=== PATIENT | female | born 1955 | race Caucasian/White ===

== ENCOUNTER → 2016-06-29 | Outpatient (CLI) | payer MEDICAID | END | disposition home or self-care (01) | LOC: CFH 13:06 | PROVIDERS: ATTEND Family Medicine | DX: N63 Unspecified lump in breast (principal) | CPT/HCPCS: 76642; G0204 ==

== ENCOUNTER 2016-07-29 14:25 | Emergency (ER) | payer MEDICAID ==
[~2016-07-29] VITALS: Ht 160 cm; Wt 68.7 kg
[2016-07-29 14:27] VITALS: BP 178/78
[2016-07-29] MEDS ORDERED: IBUPROFEN 200 MG TABLET PO ONE (15:00)
[2016-07-29] MEDS ORDERED: IBUPROFEN 200 MG TABLET ONE (15:01)
== END 2016-07-29 16:14 | disposition home or self-care (01) ==
LOC: ED 14:58
DX: M25.551 Pain in right hip (principal); M54.9 Dorsalgia, unspecified; G89.29 Other chronic pain; E78.00 Pure hypercholesterolemia, unspecified; E07.9 Disorder of thyroid, unspecified; I25.2 Old myocardial infarction; Z98.84 Bariatric surgery status; Z88.0 Allergy status to penicillin; Z90.710 Acquired absence of both cervix and uterus
CPT/HCPCS: 72110; 99284

== ENCOUNTER 2018-04-05 15:13 | Inpatient (IN) | payer OTHER ==
[~2018-04-05] VITALS: Ht 165.1 cm; Wt 84.5 kg
--- NOTE | 2018-04-05 15:32 | NUR ---
62 Y/O FEMALE BIB AMBULANCE WITH C/O POSSIBLE SZ. PER REPORT PT NEIGHBOR HEARD A THUNK. UPON ARRIVAL THE PT C/O DIZZINESS AND HEARING HER DOG FREAK OUT. PT WAS A&OX2. PER EMS, ALMOST ALL MEDICATION BOTTLES WERE OPEN AND ALL OVER THE TABLE AND FLOOR. PT IS A&OX1 AT THIS TIME. PT ONLY KNOWS NAME AT THIS TIME. PT PLACED ON CONT PULSE OX,NIBP, SENIOR LOAN PROCESSOR. NO ACUTE DISTRESS NOTED.
[2018-04-05] MEDS ORDERED: LEVOTHYROXINE (15:37)
[2018-04-05] MEDS ORDERED: METOPROLOL (15:37)
[2018-04-05] MEDS ORDERED: LORAZEPAM (15:37)
[2018-04-05] MEDS ORDERED: TOPIRAMATE (15:37)
[2018-04-05] MEDS ORDERED: LEXAPRO (15:37)
[2018-04-05] MEDS ORDERED: LOVASTATIN (15:37)
[2018-04-05] MEDS ORDERED: FUROSEMIDE (15:37)
[2018-04-05] MEDS ORDERED: PROVENTIL (15:37)
[2018-04-05] MEDS ORDERED: LANTUS (15:37)
[2018-04-05] MEDS ORDERED: GABAPENTIN (15:37)
[2018-04-05] MEDS ORDERED: RANITIDINE (15:37)
--- NOTE | 2018-04-05 15:59 | NUR ---
BED SILVESTRE REMOVED FROM PT. PT MISSED BEDPAN. ALL CLEAN LINENS PLACED UNDER PT. PT RESTING ON GURNEY. NO ACUTE DISTRESS NOTED. N O NEEDS REQUESTED AT THIS TIME.
[2018-04-05] MEDS ORDERED: ASPIRIN 81 MG TABLET CHEW PO ONE (16:30)
--- NOTE | 2018-04-05 16:37 | NUR ---
PT RESTING ONGURNEY. NO ACUTE DISTRESS NOTED. PT A&OX2 AT THIS TIME. NO NEEDS REQUESTED AT THIS TIME.
[2018-04-05 16:48] LABS: BASOPHILS # (AUTO) 0.06 x10^3/uL (0-0.1); BASOPHILS % (AUTO) 1 % (0-1); EOSINOPHILS # (AUTO) 0.07 x10^3/uL (0-0.4); EOSINOPHILS % (AUTO) 1 % (1-7); LYMPHOCYTES # (AUTO) 1.51 x10^3/uL (1-3.4); LYMPHOCYTES % (AUTO) 22 % (22-44); MD NO; MEAN CORPUSCULAR HEMOGLOBIN 29.1 pg (27.0-34.8); MEAN CORPUSCULAR HGB CONC 33.3 g/dL (32.4-35.8); MEAN CORPUSCULAR VOLUME 87.5 fL (80-100); MONOCYTES # (AUTO) 0.79 x10^3/uL (0.2-0.8); MONOCYTES % (AUTO) 12 % (2-9); NEUTROPHILS # (AUTO) 4.31 x10^3/uL (1.8-6.8); NEUTROPHILS % (AUTO) 64 % (42-75); PLATELET COUNT 280 x10^3/uL (130-400); RED BLOOD COUNT 5.15 x10^6/uL (3.82-5.3); RED CELL DISTRIBUTION WIDTH 13.9 % (9.6-15.2)
[2018-04-05 17:00] LABS: ALBUMIN 3.8 g/dL (3.4-5.0); ANION GAP 11 mmol/L (5-15); CALCIUM 9.6 mg/dL (8.5-10.1); CHLORIDE 105 mmol/L (98-107); CREATININE 1.26 mg/dL (0.55-1.02)
[2018-04-05 17:04] LABS: TROPONIN I < 0.015 ng/mL (0.000-0.045)
--- NOTE | 2018-04-05 18:04 | NUR ---
LATE ENTRY FOR 0 PT AGITATED AND DIAPHORETIC. PT FSBS WAS 82. EKG PERFORMED. EDMD BEDSIDE. PT GIVEN JUICE. PT NOW STAYING IN [facility]. PT WAS TRYING TO GET OUT OF [facility].
--- NOTE | 2018-04-05 18:05 | NUR ---
PT GIVEN PHONE TO CALL SISTER. PT ON JACEY AT THIS TIME. VSS.
--- NOTE | 2018-04-05 18:35 | NUR ---
PT MUCH MORE CALM. PT STATES " I FEEL MUCH BETTER NOW." VSS. NO ACUTE DISTRESS NOTED. NO NEEDS REQUESTED AT THIS TIME. -
[2018-04-05 18:46] LABS: FREE T4 (FREE THYROXINE) 1.62 ng/dL (0.76-1.46); THYROID STIMULATING HORMONE 0.024 mIU/L (0.358-3.740)
--- NOTE | 2018-04-05 19:08 | NUR ---
REPORT RECEIVED FROM FELIX BLANCO AND ASSUMING CARE OF PT
--- NOTE | 2018-04-05 19:10 | NUR ---
bedside report to FELIX Wheeler
[2018-04-05] MEDS ORDERED: POLYETHYLENE GLYCOL 17 GM PACKET PO PRN (19:30)
[2018-04-05] MEDS ORDERED: ACETAMINOPHEN 325 MG TABLET PO PRN (19:30)
[2018-04-05] MEDS ORDERED: LORazepam 2 MG/ML, 1ML IVPush PRN (19:30)
[2018-04-05] MEDS ORDERED: BISACODYL 10 MG SUPP PR PRN (19:30)
[2018-04-05] MEDS ORDERED: ONDANSETRON ODT 4 MG PO PRN (19:30)
--- NOTE | 2018-04-05 19:50 | NUR ---
PT ASSISTED BACK FROM BATRHOOM TO BED. REPORT OF PT CALLED TO FELIX ADKINS. ALL QUESTIONS ANSWERED.
[2018-04-05 19:54] LABS: HEMOGLOBIN A1C 7.7 % (4.2-6.3)
--- NOTE | 2018-04-05 20:01 | NUR ---
REPORT OF PT CALLED TO FELIX ADKINS. ALL QUESTIONS ANSWERED. PT SISTER CALLED AND ROOM ASSIGNMENT WAS GIVEN TO SISTER. PT INFORMED OF TRANSFER TO FLOOR.
[2018-04-05] MEDS ORDERED: LORazepam 2 MG/ML, 1ML IV ONE (20:30)
[2018-04-05] MEDS: SODIUM CHLORIDE 0.9% 1,000 ML IV SCH (22:17)
[2018-04-06 00:54] VITALS: BP 161/82
[2018-04-06] MEDS: ATORVASTATIN 40 MG TABLET PO SCH ×2 (01:52→19:34)
[2018-04-06 02:30] LABS: MICROSCOPIC AUTO
[2018-04-06 02:31] LABS: CULTURE INDICATED? YES
[2018-04-06 03:14] LABS: AMPHETAMINE SCREEN, URINE Negative (Negative); BARBITURATE SCREEN, URINE Negative (Negative); BENZODIAZEPINE SCREEN, URINE Negative (Negative); CANNABINOID SCREEN, URINE Negative (Negative); COCAINE SCREEN, URINE Negative (Negative); METHADONE SCREEN, URINE Negative (Negative); OPIATE SCREEN, URINE Negative (Negative)
[2018-04-06] MEDS: ASPIRIN 81 MG TABLET EC PO SCH (05:45)
[2018-04-06 06:04] LABS: CHLORIDE 106 mmol/L (98-107)
[2018-04-06 06:08] LABS: BASOPHILS # (AUTO) 0.06 x10^3/uL (0-0.1); BASOPHILS % (AUTO) 1 % (0-1); EOSINOPHILS # (AUTO) 0.01 x10^3/uL (0-0.4); EOSINOPHILS % (AUTO) 0 % (1-7); LYMPHOCYTES # (AUTO) 2.05 x10^3/uL (1-3.4); LYMPHOCYTES % (AUTO) 30 % (22-44); MD NO; MEAN CORPUSCULAR HEMOGLOBIN 29.5 pg (27.0-34.8); MEAN CORPUSCULAR HGB CONC 33.7 g/dL (32.4-35.8); MEAN CORPUSCULAR VOLUME 87.8 fL (80-100); MEAN PLATELET VOLUME 9.4 fL (7.4-10.4); MONOCYTES # (AUTO) 0.96 x10^3/uL (0.2-0.8); MONOCYTES % (AUTO) 14 % (2-9); NEUTROPHILS % (AUTO) 55 % (42-75); PLATELET COUNT 276 x10^3/uL (130-400); RED BLOOD COUNT 4.54 x10^6/uL (3.82-5.3); RED CELL DISTRIBUTION WIDTH 14.4 % (9.6-15.2)
[2018-04-06 06:15] LABS: ALANINE AMINOTRANSFERASE 32 U/L (12-78); ALBUMIN 3.1 g/dL (3.4-5.0); ALKALINE PHOSPHATASE 133 U/L (45-117); ANION GAP 10 mmol/L (5-15); BILIRUBIN,TOTAL 0.6 mg/dL (0.2-1.0); CALCIUM 7.9 mg/dL (8.5-10.1); CHOL/HDL RATIO 2.3; CHOLESTEROL, TOTAL 147 mg/dL (140-239); CREATININE 1.76 mg/dL (0.55-1.02); HDL CHOL % 44 % (28-40); HDL CHOLESTEROL (DIRECT) 65 mg/dL (40-60); LDL CHOLESTEROL,CALCULATED 61 mg/dL (54-169); LDL/HDL RATIO 0.9 (0.5-3.0); TRIGLYCERIDES 107 mg/dL (50-200); TROPONIN I 0.036 ng/mL (0.000-0.045); VLDL CHOLESTEROL 21 mg/dL (0-25)
[2018-04-06] MEDS: SODIUM CHLORIDE 0.9% 1,000 ML IV SCH ×2 (08:41→19:37)
[2018-04-06] MEDS: SENNA/DOCUSATE TABLET PO SCH (08:41)
[2018-04-06 09:57] VITALS: BP 128/71
[2018-04-06] MEDS ORDERED: LORazepam 2 MG/ML, 1ML IVPush ONE (10:30)
[2018-04-06] MEDS ORDERED: INSULIN LISPRO 100 UNITS/ML, PEN SQ-INSULIN SCH (11:00)
[2018-04-06 12:01] LABS: TROPONIN I < 0.015 ng/mL (0.000-0.045)
[2018-04-06] MEDS: CEFTRIAXONE PMX 1GM/50ML 50 ML IV SCH (12:35)
[2018-04-06 12:57] VITALS: BP 133/59
[2018-04-06] MEDS ORDERED: LORazepam 2 MG/ML, 1ML IVPush PRN (17:00)
[2018-04-06] MEDS: INSULIN LISPRO 100 UNITS/ML, PEN SQ-INSULIN SCH ×2 (17:48→19:37)
[2018-04-06 18:26] VITALS: BP 137/71
[2018-04-06] MEDS: INSULIN GLARGINE 100 UNITS/ML, PEN SQ-INSULIN SCH (21:54)
[2018-04-07] MEDS: ASPIRIN 81 MG TABLET EC PO SCH (05:43)
[2018-04-07] MEDS: LEVOTHYROXINE 100 MCG TABLET PO SCH (05:43)
[2018-04-07 06:22] LABS: ANION GAP 10 mmol/L (5-15); CALCIUM 8.2 mg/dL (8.5-10.1); CHLORIDE 110 mmol/L (98-107); CREATININE 1.09 mg/dL (0.55-1.02)
[2018-04-07 07:36] VITALS: BP 169/74
[2018-04-07] MEDS: INSULIN LISPRO 100 UNITS/ML, PEN SQ-INSULIN SCH ×4 (08:32→20:56)
[2018-04-07] MEDS: SENNA/DOCUSATE TABLET PO SCH (08:32)
[2018-04-07] MEDS: CEFTRIAXONE PMX 1GM/50ML 50 ML IV SCH (12:28)
[2018-04-07 13:05] VITALS: BP 170/78
[2018-04-07] MEDS: SODIUM CHLORIDE 0.9% 1,000 ML IV SCH (17:37)
[2018-04-07] MEDS: hydrALAzine 20 MG/ML, 1ML IVPush PRN (17:40)
[2018-04-07 17:43] VITALS: BP 203/81
[2018-04-07 20:00] VITALS: BP 146/65
[2018-04-07] MEDS: ATORVASTATIN 40 MG TABLET PO SCH (20:54)
[2018-04-07] MEDS: INSULIN GLARGINE 100 UNITS/ML, PEN SQ-INSULIN SCH (20:56)
[2018-04-08 02:00] VITALS: BP 191/70
[2018-04-08 02:16] VITALS: BP 183/76
[2018-04-08] MEDS: hydrALAzine 20 MG/ML, 1ML IVPush PRN ×2 (02:17→08:14)
[2018-04-08] MEDS: SODIUM CHLORIDE 0.9% 1,000 ML IV SCH (02:21)
[2018-04-08 02:40] VITALS: BP 168/69
[2018-04-08] MEDS: ASPIRIN 81 MG TABLET EC PO SCH (05:23)
[2018-04-08] MEDS: LEVOTHYROXINE 100 MCG TABLET PO SCH (05:24)
[2018-04-08 07:20] VITALS: BP 178/75
[2018-04-08] MEDS: SENNA/DOCUSATE TABLET PO SCH (08:14)
[2018-04-08] MEDS: INSULIN LISPRO 100 UNITS/ML, PEN SQ-INSULIN SCH ×2 (08:14→10:35)
[2018-04-08] MEDS: CEFTRIAXONE PMX 1GM/50ML 50 ML IV SCH (10:33)
[2018-04-08 12:32] VITALS: BP 172/73
[2018-04-08] MEDS ORDERED: CEFD300C37 PO (13:02)
[2018-04-08] MEDS ORDERED: LEVO100T PO (13:02)
[2018-04-08] MEDS ORDERED: ASPI81TA45 PO (13:02)
[2018-04-08] MEDS ORDERED: ATOR40TA78 PO (15:48)
== END 2018-04-08 15:43 | disposition home health service (06) | DRG 64 ==
LOC: ED 19:42 → 4EST 20:00 → DCLOUNGE 04-08 15:28
PROVIDERS: ADMIT Internal Medicine; ATTEND Internal Medicine
DX: I63.412 Cerebral infarction due to embolism of left middle cerebral artery (principal); G93.41 Metabolic encephalopathy; N39.0 Urinary tract infection, site not specified; B96.20 Unspecified Escherichia coli [E. coli] as the cause of diseases classified elsewhere; E03.9 Hypothyroidism, unspecified; E05.90 Thyrotoxicosis, unspecified without thyrotoxic crisis or storm; E11.649 Type 2 diabetes mellitus with hypoglycemia without coma; E78.00 Pure hypercholesterolemia, unspecified; F31.9 Bipolar disorder, unspecified; G40.909 Epilepsy, unspecified, not intractable, without status epilepticus; R00.1 Bradycardia, unspecified; K21.9 Gastro-esophageal reflux disease without esophagitis; M54.9 Dorsalgia, unspecified; G89.29 Other chronic pain; I10 Essential (primary) hypertension; I25.2 Old myocardial infarction; Z79.4 Long term (current) use of insulin; Z86.73 Personal history of transient ischemic attack (TIA), and cerebral infarction without residual deficits; Z90.710 Acquired absence of both cervix and uterus; Z98.84 Bariatric surgery status; Z90.49 Acquired absence of other specified parts of digestive tract; Z87.891 Personal history of nicotine dependence; Z88.0 Allergy status to penicillin
CPT/HCPCS: 36415; 36600; 70450; 70551; 71045; 80048; 80053; 80061; 80307; 81001; 82040; 82803; 82962; 83036; 83880; 84439; 84443; 84484; 85025; 87077; 87086; 87186; 93005; 93306; 93880; 95819; 99285; G0378; J0696; 92523-GN; J0360; J1815; J2060; J7030